=== PATIENT | female | born 1965 | race Caucasian/White ===

== ENCOUNTER → 2019-09-27 | Outpatient (CLI) | payer BC ==
--- NOTE | 2019-09-28 11:49 | MM ---
Reason for exam: screening (asymptomatic). Last mammogram was performed 3 years and 2 months ago. History: Patient is postmenopausal and is nulliparous. Took hormonal contraceptives for 7 years. Physical Findings: A clinical breast exam by your physician is recommended on an annual basis and results should be correlated with mammographic findings. MG Screening Mammo w CAD Bilateral CC and MLO view(s) were taken. Prior study comparison: August 05, 2016, bilateral MG 3d screening mammo w/cad. March 19, 2014, bilateral MG screening mammo w CAD. The breast tissue is heterogeneously dense. This may lower the sensitivity of mammography. There is no discrete abnormality. ASSESSMENT: Negative, BI-RAD 1 RECOMMENDATION: Routine screening mammogram of both breasts in 1 year.
== END | disposition home or self-care (01) ==
LOC: RADMAMWWP 09:18
PROVIDERS: ATTEND Family Medicine
DX: Z12.31 Encounter for screening mammogram for malignant neoplasm of breast (principal)
CPT/HCPCS: 77067

== ENCOUNTER → 2022-05-26 | Outpatient (CLI) | payer BC ==
--- NOTE | 2022-05-26 10:47 | MM ---
Reason for Exam: Screening (asymptomatic). Last mammogram was performed 2 year(s) and 8 month(s) ago. Patient History: Menarche at age 12. Patient has no children. Postmenopausal. Patient used Hormonal Contraceptives for 7 years. Risk Values: Leah 5 year model risk: 1.4%. NCI Lifetime model risk: 8.7%. Prior Study Comparison: 03/19/2014 Bilateral Screening Mammogram, [facility]. 08/05/2016 Bilateral Screening Mammogram, [facility]. 09/27/2019 Bilateral Screening Mammogram, [facility]. Tissue Density: The breast tissue is heterogeneously dense. This may lower the sensitivity of mammography. Findings: Analyzed By CAD. There is a new area of spiculated density at the 12:00 position right breast approximately 10 cm from the nipple. Findings are suspicious for malignancy and additional views as well as ultrasound are recommended. No evidence for spiculation or mass within the left breast. No suspicious microcalcifications identified within either breast. Overall Assessment: Incomplete: need additional imaging evaluation, BI-RAD 0 Management: Diagnostic Mammogram of the right breast. A clinical breast exam by your physician is recommended on an annual basis and results should be correlated with mammographic findings. Electronically signed and approved by: Ryan Guevara M.D. Radiologis
== END | disposition home or self-care (01) ==
LOC: RADMAMWWP 08:17
PROVIDERS: ATTEND Family Medicine
DX: Z12.31 Encounter for screening mammogram for malignant neoplasm of breast (principal); Z78.0 Asymptomatic menopausal state
CPT/HCPCS: 77063; 77067

== ENCOUNTER → 2022-05-27 | Outpatient (CLI) | payer BC ==
--- NOTE | 2022-05-27 11:44 | MM ---
Reason for Exam: Additional evaluation requested from abnormal screening. Last screening mammogram was performed less than 1 month ago. Patient History: Menarche at age 12. Patient has no children. Postmenopausal. Patient used Hormonal Contraceptives for 7 years. Risk Values: Leah 5 year model risk: 1.4%. NCI Lifetime model risk: 8.7%. Tissue Density: Right: The breast tissue is heterogeneously dense. This may lower the sensitivity of mammography. Findings: Analyzed By CAD. On additional views, there is persistent distortion right breast middle depth 1:00 position. Further ultrasound evaluation recommended. Overall Assessment: Incomplete: need additional imaging evaluation, BI-RAD 0 Management: Diagnostic Breast Ultrasound of the right breast. Electronically signed and approved by: William Kaplan M.D. Radiologist
--- NOTE | 2022-05-27 12:05 | USB ---
Reason for Exam: Additional evaluation requested from abnormal screening. Patient History: Menarche at age 12. Patient has no children. Postmenopausal. Patient used Hormonal Contraceptives for 7 years. Risk Values: Leah 5 year model risk: 1.4%. NCI Lifetime model risk: 8.7%. Prior Study Comparison: 08/05/2016 Bilateral Screening Mammogram, [facility]. 09/27/2019 Bilateral Screening Mammogram, [facility]. 05/26/2022 Bilateral MG 3D screening mammo w/cad, [facility]. Findings: The whole breast of the right breast, the axilla of the right breast and the retroareolar of the right breast were scanned. Whole right breast ultrasound including scanning of the subareolar region and axilla. At the 1:00 position, 10 cm from the nipple, there is an irregular hypoechoic area with some shadowing measuring 10 x 9 x 6 mm. Some peripheral vascularity is noted. Tissue sampling is recommended. In the axilla, a nonenlarged lymph node is noted but with uniform borderline cortical thickening up to 3 mm. Second look ultrasound at the time of biopsy is recommended to determine if this should also be sampled. No other solid or cystic lesion. Overall Assessment: Suspicious, BI-RAD 4 Management: Ultrasound Core Biopsy of the right breast. At the time of biopsy, second look ultrasound at the axilla is also recommended to assess if the nonenlarged lymph node here should also be sampled. Electronically signed and approved by: William Kaplan M.D. Radiologist
== END | disposition home or self-care (01) ==
LOC: RADMAMWWP 10:12
PROVIDERS: ATTEND Family Medicine
DX: R92.8 Other abnormal and inconclusive findings on diagnostic imaging of breast (principal); Z78.0 Asymptomatic menopausal state
CPT/HCPCS: 77061; 77065

== ENCOUNTER → 2022-06-01 | Day surgery (SDC) | payer BC ==
--- NOTE | 2022-06-10 09:56 | USB ---
Risk Values: Leah 5 year model risk: 1.4%. NCI Lifetime model risk: 8.7%. Pathology Description: Location: 1 o'clock, upper inner quadrant. Marker Left Behind. Needle Type: Mammotone Cores: 3 Gauge: 13 The procedure of ultrasound guided core biopsy was explained to the patient. Benefits, alternatives, and risks were discussed. An informed consent was then obtained. The patient was placed in supine positioning for imaging and for the procedure. The overlying skin was prepped and draped in usual sterile fashion. Lidocaine buffered with bicarbonate was used as anesthetic into the skin and subcutaneous tissue up to area of concern in the right breast at 1:00 position 10 cm from the nipple. Right breast biopsy clip is seen in the area right middle depth lesion seen on ultrasound approximately 10 cm from the nipple. Additional biopsy clip seen within the right axilla from ultrasound-guided biopsy same day. No evidence of biopsy complication. Under ultrasound guidance, a 12-gauge vacuum assisted biopsy gun device was used to obtain 3 core samples. Following this, a biopsy clip was left in lesion. Next , attention was taken to the right axilla and a suspicious lymph node was targeted for biopsy with 3 14-gauge core samples taken. A biopsy clip was then placed near the right axilla lymph node. The patient tolerated the procedure well without any immediate complication. The patient was kept in the radiology department for short stay after the procedure and then discharged home in stable condition. Postprocedure mammogram: The patient was transferred to mammography for physician ordered post procedure mammogram for clip placement verification. Impression: Successful, uncomplicated ultrasound guided core biopsy of area of concern in the right breast 1:00 10 cm from nipple and right axillary suspicious appearing lymph node. Full pathology results to follow. Pathology Results: Result: Benign. A. RIGHT BREAST, DESIGNATED "1:00" POSITION, CORE BIOPSY: Fibrous scar with focal inflammation. Current specimen negative for diagnostic malignancy, imaging correlation suggested, as clinically indicated. See note. B. RIGHT AXILLA, CORE BIOPSY: Lymphoid tissue, negative for metastatic carcinoma (see note). Pathology Description: Location: axilla. Marker Left Behind. Cores: 3 Gauge: 14 Tissue Density: Right: The breast tissue is heterogeneously dense. This may lower the sensitivity of mammography. Overall Assessment: Benign Assessment: MG diagnostic mammo RT wo CAD - Right: Benign, BI-RAD 2. Management: Diagnostic Breast Ultrasound of the right breast in 6 months. Electronically signed and approved by: Jerson Moscoso DO
== END ==
LOC: RADUSWWP 12:44
PROVIDERS: ATTEND Family Medicine
DX: R92.8 Other abnormal and inconclusive findings on diagnostic imaging of breast (principal)
CPT/HCPCS: 88305; 88342; 88341; 77065; 76942; 38505; 19083; A4648

== ENCOUNTER → 2023-01-01 | Outpatient (CLI) | payer BC ==
--- NOTE | 2023-01-06 15:00 | MM ---
Reason for Exam: Follow-up at short interval from prior study. Last screening mammogram was performed 7 month(s) ago. Patient History: Menarche at age 12. Patient has no children. Postmenopausal. Patient used Hormonal Contraceptives for 7 years. 06/01/2022, Benign US biopsy breast VAD RT on the right side. 06/01/2022, US breast needle core RT on the Right side. Risk Values: Leah 5 year model risk: 2.1%. NCI Lifetime model risk: 12.8%. Prior Study Comparison: 08/05/2016 Bilateral Screening Mammogram, [facility]. 09/27/2019 Bilateral Screening Mammogram, [facility]. 05/26/2022 Bilateral MG 3D screening mammo w/cad, [facility]. 05/27/2022 Right MG 3D work up w/cad RT, [facility]. 06/01/2022 Right MG diagnostic mammo RT wo CAD, [facility]. Tissue Density: Right: The breast tissue is heterogeneously dense. This may lower the sensitivity of mammography. Findings: Analyzed By CAD. Again noted is a spiculated previously sampled the density within the 12:00 position right breast. Consider MRI correlation. No additional masses or areas of distortion. No suspicious calcifications. Overall Assessment: Probably benign, BI-RAD 3 Management: Diagnostic Breast MRI of both breasts. A clinical breast exam by your physician is recommended on an annual basis and results should be correlated with mammographic findings. This exam should not preclude additional follow-up of suspicious palpable abnormalities. Results were given to the patient verbally at the time of exam. Electronically signed and approved by: Ryan Guevara M.D. Radiologis
== END | disposition home or self-care (01) ==
LOC: RADMAMWWP 13:37
PROVIDERS: ATTEND Family Medicine
DX: R92.8 Other abnormal and inconclusive findings on diagnostic imaging of breast (principal); Z78.0 Asymptomatic menopausal state
CPT/HCPCS: 77061; 77065

== ENCOUNTER → 2023-10-08 | Outpatient (CLI) | payer BC ==
--- NOTE | 2023-10-09 11:36 | CA ---
Transthoracic Echo Report Name: Kelli Baez Age: 58 Gender: F : 1965 Exam Date: 10/08/2023 14:32 Exam Location: [facility] Ht (in): 67 Wt (lb): 265 Ordering Physician: You Armendariz MD Attending/Referring Phys: Hotel Baggage Handler Nydia Thornton [facility] Procedure CPT: Indications: i48.0 Cardiac Hx: Technical Quality: Fair Contrast 1: Total Dose (mL): Contrast 2: Total Dose (mL): MEASUREMENTS (Male / Female) Normal Values 2D ECHO LV Diastolic Diameter PLAX 4.8 cm 4.2 - 5.9 / 3.9 - 5.3 cm LV Systolic Diameter PLAX 3.1 cm IVS Diastolic Thickness 1.1 cm 0.6 - 1.0 / 0.6 - 0.9 cm LVPW Diastolic Thickness 1.1 cm 0.6 - 1.0 / 0.6 - 0.9 cm LV Relative Wall Thickness 0.5 LVOT Diameter 2.0 cm Ascending Aorta Diameter 3.4 cm M-MODE Aortic Root Diameter MM 2.7 cm LA Systolic Diameter MM 4.2 cm LA Ao Ratio MM 1.5 AV Cusp Separation MM 1.9 cm DOPPLER AV Peak Velocity 164.6 cm/s AV Peak Gradient 10.8 mmHg AV Mean Velocity 98.9 cm/s AV Mean Gradient 4.7 mmHg AV Velocity Time Integral 25.6 cm LVOT Peak Velocity 110.5 cm/s LVOT Peak Gradient 4.9 mmHg LVOT Velocity Time Integral 22.3 cm LVOT Stroke Volume 71.6 cm??? LVOT Stroke Volume Index 31.4 ml/m??? LVOT Cardiac Index 1994.1 cm???/min???m??? AV Area Cont Eq vti 2.8 cm??? AV Area Cont Eq pk 2.2 cm??? Mitral E Point Velocity 73.5 cm/s Mitral A Point Velocity 87.3 cm/s Mitral E to A Ratio 0.8 MV Deceleration Time 234.1 ms LV E' Lateral Velocity 9.1 cm/s Mitral E to LV E' Lateral Ratio 8.1 LV E' Septal Velocity 6.1 cm/s Mitral E to LV E' Septal Ratio 12.0 TR Peak Velocity 202.0 cm/s TR Peak Gradient 16.3 mmHg Right Atrial Pressure 3.0 mmHg Pulmonary Artery Systolic Pressu 19.3 mmHg Right Ventricular Systolic Press 19.3 mmHg FINDINGS Left Ventricle Mildly increased septal wall thickness. Mildly increased posterior wall thickness. Left ventricular cavity size normal. Normal left ventricular systolic function with no obvious regional wall motion abnormalities. Left ventricular ejection fraction is estimated at 55-60%. Right Ventricle Mild right ventricular dilatation. Right Atrium Upper normal right atrial size. Left Atrium Normal left atrial size. Mitral Valve Structurally normal mitral valve. Trace mitral regurgitation. Aortic Valve Trileaflet aortic valve. No aortic valve stenosis or regurgitation. Tricuspid Valve Pulmonic Valve Pulmonic valve not well visualized. Pericardium Minimal pericardial effusion (normal variant). Aorta Normal size aortic root and proximal ascending aorta. CONCLUSIONS Left ventricular ejection fraction 55-60% Mildly increased left ventricular wall thickness Trace mitral regurgitation RVSP 19 Previewed by: Dr. Silvio Padron DO (Electronically Signed) Final Date: 09 October 2023 11:34
== END | disposition home or self-care (01) ==
LOC: RADECHMAIN 14:18
PROVIDERS: ATTEND Family Medicine
DX: I34.0 Nonrheumatic mitral (valve) insufficiency (principal); I48.0 Paroxysmal atrial fibrillation
CPT/HCPCS: 93306

== ENCOUNTER → 2024-01-19 | Outpatient (CLI) | payer BC ==
--- NOTE | 2024-01-19 15:13 | MM ---
Reason for Exam: Clinical finding. Last mammogram was performed 1 year(s) and 8 month(s) ago. Patient History: Menarche at age 12. Patient has no children. Postmenopausal. Patient used Hormonal Contraceptives for 7 years. 06/01/2022, Benign US biopsy breast VAD RT on the right side. 06/01/2022, US breast needle core RT on the Right side. Risk Values: Leah 5 year model risk: 2.2%. NCI Lifetime model risk: 12.5%. Tissue Density: The breasts are heterogeneously dense, which may obscure small masses. Findings: Analyzed By CAD. Distortion which has been sampled previously upper central right breast. No evidence for mass within the left breast. No suspicious calcifications. Overall Assessment: Benign, BI-RAD 2 Management: Screening Mammogram of both breasts in 1 year. . Results were given to the patient verbally at the time of exam. Patient should continue monthly self-breast exams. A clinical breast exam by your physician is recommended on an annual basis. This exam should not preclude additional follow-up of suspicious palpable abnormalities. Note on Leah scores and lifetime risk: 1. A Leah score greater than 3% is considered moderate risk. If this is the case, consider specialist referral to assess eligibility for a risk reducing agent. 2. If overall lifetime risk for the development of breast cancer is 20% or higher, the patient may qualify for future screening with alternating mammogram and breast MRI. Electronically signed and approved by: Ryan Guevara M.D. Radiologis
== END | disposition home or self-care (01) ==
LOC: RADMAMWWP 14:45
PROVIDERS: ATTEND Family Medicine
DX: R92.333 Mammographic heterogeneous density, bilateral breasts (principal); R91.1 Solitary pulmonary nodule; Z78.0 Asymptomatic menopausal state
CPT/HCPCS: 77062; 77066